=== PATIENT | female | born 1985 | race Caucasian/White ===

== ENCOUNTER 2020-05-23 18:11 | Emergency (ER) | payer SELFPAY ==
[~2020-05-23] VITALS: Ht 162.6 cm; Wt 81.0 kg
[2020-05-23] MEDS ORDERED: ACETAMINOPHEN 325MG TABLET PO STA (19:02)
[2020-05-23 19:36] LABS: BASOPHILS % 0.5 % (0.0-2.0); EOSINOPHILS % 1.9 % (0.0-5.0); HEMATOCRIT. 39.6 % (36.0-48.0); HEMOGLOBIN. 13.1 g/dL (12.0-16.0); MEAN CORPUSCULAR HEMOGLOBIN 30.1 pg (28.0-32.0); MEAN PLATELET VOLUME 9.5 fl (7.4-10.4); MONOCYTES % 7.2 % (2.0-8.0); NEUTROPHILS % 63.4 % (40.0-76.0); PLATELET 206 x1000/uL (130-400); RED BLOOD CELL COUNT 4.35 mill/uL (4.2-5.4); RED CELL DISTRIBUTION WIDTH 15.2 % (11.6-14.6)
[2020-05-23 19:37] LABS: CHLORIDE 109 mEq/L (98-107)
[2020-05-23 19:38] LABS: CLARITY URINE CLOUDY (CLEAR); COLOR URINE YELLOW (YELLOW); KETONES URINE NEGATIVE (NEGATIVE); LEUKOCYTE ESTERASE URINE NEGATIVE (NEGATIVE); NITRITE URINE POSITIVE (NEGATIVE); OCCULT BLOOD URINE 2+ (NEGATIVE); PH URINE 5.5 (4.5-8.0); PROTEIN URINE NEGATIVE (NEGATIVE); SPECIFIC GRAVITY URINE 1.021 (1.005-1.030); UROBILINOGEN URINE 0.2 E.U./dL (0.2-1.0)
[2020-05-23 20:01] LABS: B-HCG QUANTITATIVE 6841 mIU/mL (<3)
[2020-05-23 21:17] VITALS: BP 111/69
== END 2020-05-23 21:20 | disposition home or self-care (01) ==
LOC: ER 18:11
DX: O20.0 Threatened abortion (principal); D64.9 Anemia, unspecified; M54.32 Sciatica, left side; Z3A.01 Less than 8 weeks gestation of pregnancy
CPT/HCPCS: 36415; 76801; 76817; 80053; 81003; 81025; 83690; 84702; 85025; 86850; 86900; 86901; 93005; 99285; Z7610

== ENCOUNTER 2020-08-12 09:50 | Emergency (ER) | payer MEDICAID ==
[~2020-08-12] VITALS: Ht 165.1 cm; Wt 75.0 kg
[2020-08-12 11:45] LABS: CHLORIDE 111 mEq/L (98-107)
[2020-08-12 12:13] LABS: B-HCG QUANTITATIVE 7151 mIU/mL (<3)
[2020-08-12 12:45] LABS: BASOPHILS % 0.4 % (0.0-2.0); EOSINOPHILS % 1.2 % (0.0-5.0); HEMATOCRIT. 38.3 % (36.0-48.0); HEMOGLOBIN. 12.8 g/dL (12.0-16.0); LYMPHOCYTES % 18.6 % (20.0-50.0); MEAN CORPUSCULAR HEMOGLOBIN 31.5 pg (28.0-32.0); MEAN CORPUSCULAR VOLUME 94.3 fL (81.0-99.0); MEAN PLATELET VOLUME 9.8 fl (7.4-10.4); MONOCYTES % 5.8 % (2.0-8.0); PLATELET 190 x1000/uL (130-400); RED BLOOD CELL COUNT 4.06 mill/uL (4.2-5.4); RED CELL DISTRIBUTION WIDTH 14.9 % (11.6-14.6)
[2020-08-12 14:33] LABS: CLARITY URINE CLEAR (CLEAR); COLOR URINE YELLOW (YELLOW); KETONES URINE NEGATIVE (NEGATIVE); LEUKOCYTE ESTERASE URINE NEGATIVE (NEGATIVE); NITRITE URINE POSITIVE (NEGATIVE); OCCULT BLOOD URINE NEGATIVE (NEGATIVE); PROTEIN URINE NEGATIVE (NEGATIVE); SPECIFIC GRAVITY URINE 1.021 (1.005-1.030); UROBILINOGEN URINE 0.2 E.U./dL (0.2-1.0)
[2020-08-12] MEDS ORDERED: NITR-87 MT (15:23)
[2020-08-12] MEDS ORDERED: NITROFURANTOIN 100MG M/M CAPSULE PO ONE (15:30)
[2020-08-12 15:35] VITALS: BP 110/70
== END 2020-08-12 15:38 | disposition home or self-care (01) ==
LOC: ER 09:50
DX: O23.42 Unspecified infection of urinary tract in pregnancy, second trimester (principal); O26.892 Other specified pregnancy related conditions, second trimester; Z3A.17 17 weeks gestation of pregnancy
CPT/HCPCS: 36415; 76805; 80053; 81003; 84702; 85025; 86850; 86900; 86901; 99285; Z7610

== ENCOUNTER 2021-05-30 12:30 | Inpatient (IN) | payer MEDICAID ==
[~2021-05-30] VITALS: Ht 167.6 cm; Wt 66.9 kg
[2021-05-30 13:29] LABS: BASOPHILS % 0.7 % (0.0-2.0); EOSINOPHILS % 1.7 % (0.0-5.0); HEMATOCRIT. 41.2 % (36.0-48.0); HEMOGLOBIN. 14.1 g/dL (12.0-16.0); LYMPHOCYTES % 29.1 % (20.0-50.0); MEAN CORPUSCULAR HEMOGLOBIN 32.1 pg (28.0-32.0); MEAN CORPUSCULAR VOLUME 93.9 fL (81.0-99.0); MEAN PLATELET VOLUME 9.6 fl (7.4-10.4); MONOCYTES % 7.3 % (2.0-8.0); NEUTROPHILS % 61.2 % (40.0-76.0); PLATELET 205 x1000/uL (130-400); RED BLOOD CELL COUNT 4.38 mill/uL (4.2-5.4); RED CELL DISTRIBUTION WIDTH 13.1 % (11.6-14.6)
[2021-05-30 13:35] LABS: CHLORIDE 112 mEq/L (98-107)
[2021-05-30 13:48] LABS: HCG SCREEN NEGATIVE
[2021-05-30 13:48] LABS: CLARITY URINE CLEAR (CLEAR); COLOR URINE YELLOW (YELLOW); KETONES URINE NEGATIVE (NEGATIVE); LEUKOCYTE ESTERASE URINE TRACE (NEGATIVE); NITRITE URINE NEGATIVE (NEGATIVE); OCCULT BLOOD URINE NEGATIVE (NEGATIVE); PH URINE 5.5 (4.5-8.0); PROTEIN URINE NEGATIVE (NEGATIVE); SPECIFIC GRAVITY URINE 1.009 (1.005-1.030); UROBILINOGEN URINE 0.2 E.U./dL (0.2-1.0)
[2021-05-30] MEDS ORDERED: MORPHINE SULFATE 4 MG/ML CPJ (NOT FOR IM USE) IV ONE (14:00)
[2021-05-30] MEDS ORDERED: KETOROLAC 30MG/ML VIAL IV ONE (16:30)
[2021-05-30] MEDS ORDERED: HYDROMORPHONE HCL/PF 2MG/ML CPJ IV NR (18:45)
[2021-05-30] MEDS ORDERED: SODIUM CHLORIDE 0.9% 1,000 ML IV ONE ×2 (18:45→21:45)
[2021-05-30] MEDS ORDERED: DEXAMETHASONE 10 MG/ML VIAL IV ONE (19:00)
[2021-05-30 20:04] LABS: CREATINE KINASE 61 IU/L (26-192)
[2021-05-30] MEDS ORDERED: PIPERACILLIN/TAZ 3.375G PREMIX 50 ML IV ONE (21:45)
[2021-05-30] MEDS ORDERED: VANCOMYCIN 1G PREMIX 200 ML IV ONE (21:45)
[2021-05-31] MEDS ORDERED: MAGNESIUM/ALUMINUM HYDROXIDE/SIMETHICONE 30ML UDC PO PRN (01:30)
[2021-05-31] MEDS ORDERED: ONDANSETRON HCL 4MG/2ML INJ IV PRN (01:30)
[2021-05-31] MEDS ORDERED: GUAIFENESIN 200MG/10ML SUGAR FREE UDC PO PRN (01:30)
[2021-05-31] MEDS ORDERED: CLONIDINE 0.1MG TABLET PO PRN (01:30)
[2021-05-31] MEDS ORDERED: ACETAMINOPHEN 325MG TABLET PO PRN (01:30)
[2021-05-31] MEDS ORDERED: DOCUSATE SODIUM 100MG CAPSULE PO PRN (01:30)
[2021-05-31] MEDS ORDERED: NALOXONE HCL 0.4 MG/ML 1ML VIAL IV PRN (01:45)
[2021-05-31] MEDS: HYDROCODONE/ACETAMINOPHEN 5/325MG TABLET PO PRN ×3 (05:07→15:25)
[2021-05-31 12:24] LABS: *AMPHETAMINES SCREEN URINE NEGATIVE (NEGATIVE); *BARBITURATES SCREEN URINE NEGATIVE (NEGATIVE)
[2021-05-31 12:25] LABS: *BENZODIAZEPINES SCREEN URINE NEGATIVE (NEGATIVE); *COCAINE SCREEN URINE NEGATIVE (NEGATIVE); CANNABINOID URINE SCREEN NEGATIVE (NEGATIVE); METHADONE URINE SCREEN NEGATIVE (NEGATIVE); PHENCYCLIDINE URINE SCREEN NEGATIVE (NEGATIVE)
[2021-05-31 12:37] LABS: OPIATES URINE SCREEN PRESUMTIVE POSITIVE (NEGATIVE)
[2021-05-31 13:00] VITALS: BP 115/70
[2021-05-31] MEDS ORDERED: CYCLOBENZAPRINE 10MG TABLET PO PRN (14:00)
[2021-05-31 16:00] VITALS: BP 110/75
[2021-05-31 20:45] VITALS: BP 105/61
[2021-06-01] VITALS: BP 101/53
[2021-06-01 04:00] VITALS: BP 100/56
[2021-06-01] MEDS: HYDROCODONE/ACETAMINOPHEN 5/325MG TABLET PO PRN (05:36)
[2021-06-01 07:45] LABS: CHLORIDE 111 mEq/L (98-107)
[2021-06-01 07:46] LABS: BASOPHILS % 0.4 % (0.0-2.0); EOSINOPHILS % 0.8 % (0.0-5.0); HEMATOCRIT. 38.1 % (36.0-48.0); LYMPHOCYTES % 34.9 % (20.0-50.0); MEAN CORPUSCULAR HEMOGLOBIN 32.1 pg (28.0-32.0); MEAN CORPUSCULAR VOLUME 93.9 fL (81.0-99.0); MEAN PLATELET VOLUME 9.9 fl (7.4-10.4); MONOCYTES % 6.4 % (2.0-8.0); NEUTROPHILS % 57.5 % (40.0-76.0); PLATELET 202 x1000/uL (130-400); RED BLOOD CELL COUNT 4.05 mill/uL (4.2-5.4)
[2021-06-01 08:20] VITALS: BP 103/65
[2021-06-01 11:25] VITALS: BP 159/85
[2021-06-01 11:30] VITALS: BP 107/64
[2021-06-01 13:17] VITALS: BP 125/86
== END 2021-06-01 13:55 | disposition home or self-care (01) | DRG 347 ==
LOC: ER 12:30 → MICUSO 22:02 → EDBEDREQ 22:07 → EDBEDREQTM 22:07 → EDBEDREQSVC 22:07 → 6WST 05-31 14:10
PROVIDERS: ADMIT Hospitalist; ATTEND Hospitalist
DX: M51.9 Unspecified thoracic, thoracolumbar and lumbosacral intervertebral disc disorder (principal); D64.9 Anemia, unspecified; F32.A Depression, unspecified; R33.9 Retention of urine, unspecified; Z20.822 Contact with and (suspected) exposure to COVID-19
CPT/HCPCS: 36415; 72141; 72146; 72148; 74176; 76830; 76856; 80053; 80305; 80307; 80320; 80329; 81003; 82140; 82550; 83605; 84443; 84703; 85025; 85651; 86140; 87077; 87186; 87426; 93970; 97162; 99291; J1100; J1170; J1885; J2270; J2543; J3370; J7030; A4315; G0480